=== PATIENT | female | born 1990 | race Two or more races ===

== ENCOUNTER 2025-06-08 05:06 | Inpatient (IN) | payer OTHER ==
[~2025-06-08] VITALS: Ht 157.5 cm; Wt 1.8 kg
[2025-06-08 04:40] VITALS: BP 103/70
[2025-06-08] MEDS ORDERED: MAGNESIUM SULFATE IN WATER 500 ML IV SCH (05:15)
[2025-06-08] MEDS ORDERED: RINGERS SOLUTION,LACTATED 1,000 ML IV SCH (05:15)
[2025-06-08] MEDS ORDERED: MAGNESIUM SULFATE IN WATER 4 GM/100 ML PIGGYBACK IV ONE (05:15)
[2025-06-08] MEDS ORDERED: BETAMETHASONE ACETATE,SOD PHOS 30 MG/5 ML ML IM ONE ×2 (05:15)
[2025-06-08 06:12] VITALS: BP 96/60; O2SAT 97
[2025-06-08 07:06] LABS: BASO % 0.2 % (0.1-1.2); EOS # 0.12 (0.04-0.54); EOS % 1.3 % (0.7-7.0); LYMPH # 1.34 (1.18-3.74); LYMPH % 14.9 % (19.3-53.1); MEAN PLATELET VOLUME 8.40 fl (9.4-12.4); MONO # 0.60 (0.24-0.82); MONO % 6.7 % (4.7-12.5); NEUT # 6.87 (1.56-6.13); NEUT % 76.2 % (34.0-71.1); RED CELL DISTRIBUTION WIDTH 12.3 % (11.6-14.4)
[2025-06-08] MEDS ORDERED: PRENATAL TABLE1 EAC1 PO (07:13)
[2025-06-08] MEDS ORDERED: NIFEDIPINE20 MG PO (07:14)
[2025-06-08 07:24] LABS: INR < 0.93
[2025-06-08 07:32] LABS: ALT/SGPT 81.0 U/L (12-78); AST/SGOT 35.0 U/L (15-37); BILIRUBIN TOTAL 0.32 mg/dL (0.3-1.2); BUN CREA RATIO 15.0 (7.0-25.0); CREATININE SERUM 0.46 mg/dL (0.55-1.02); GFR 155.5; GLOBULINA 3.0 G/DL (2.4-3.5); GLUCOSE FASTING 98.0 mg/dL (65-100); OSMOLALITY SERUM 275.0 MOSM/KG (275-295)
[2025-06-08] MEDS ORDERED: ACETAMINOPHEN 500 MG GEL..CAP PO PRN (08:00)
[2025-06-08] MEDS ORDERED: FAMOTIDINE/PF 20 MG/2 ML VIAL IV PUSH PRN (08:00)
[2025-06-08] MEDS ORDERED: SOD FERRIC GLUC COMPLX/SUCROSE 62.5 MG/5 ML AMPUL IV SCH (09:00)
[2025-06-08] MEDS ORDERED: IRON/V.C/V.B12/FOLIC A/VIT. E 1 CAPL CAPLET PO SCH (09:00)
[2025-06-08 16:00] VITALS: BP 105/68
[2025-06-08] MEDS ORDERED: POLYETHYLENE GLYCOL 3350 17 GM BLIST.PACK PO SCH (21:00)
[2025-06-08 22:16] VITALS: BP 108/71
[2025-06-09 01:27] VITALS: BP 109/63
[2025-06-09] MEDS ORDERED: BETAMETHASONE ACETATE,SOD PHOS 30 MG/5 ML ML IM ONE (06:00)
[2025-06-09] MEDS ORDERED: BETAMETHASONE ACETATE,SOD PHOS 30 MG/5 ML ML ONE (06:37)
[2025-06-09 08:00] VITALS: BP 99/65
[2025-06-09 08:05] LABS: BASO % 0.1 % (0.1-1.2); EOS # 0.01 (0.04-0.54); EOS % 0.1 % (0.7-7.0); LYMPH # 1.43 (1.18-3.74); LYMPH % 13.3 % (19.3-53.1); MEAN PLATELET VOLUME 8.30 fl (9.4-12.4); MONO # 0.76 (0.24-0.82); MONO % 7.1 % (4.7-12.5); NEUT # 8.34 (1.56-6.13); NEUT % 77.8 % (34.0-71.1); RED CELL DISTRIBUTION WIDTH 13.0 % (11.6-14.4)
[2025-06-09] MEDS ORDERED: NIFEDIPINE 30 MG TAB.SA.OSM PO SCH (09:00)
[2025-06-09] MEDS ORDERED: PNV,CALCIUM 72/IRON/FOLIC ACID 1 TAB TABLET PO SCH (12:00)
[2025-06-09 15:11] VITALS: BP 105/64
[2025-06-09] MEDS ORDERED: MAGNESIUM SULFATE IN WATER 0.04 GM/ML IV.SOLN IV ONE (15:12)
[2025-06-09] MEDS ORDERED: MAGNESIUM SULFATE IN WATER 500 ML IV SCH (15:45)
[2025-06-09 16:42] VITALS: BP 100/55
[2025-06-09 20:15] VITALS: BP 103/62; O2SAT 96
[2025-06-09] MEDS ORDERED: IRON FUM,PS/FOLIC/BCOMP,C NO.9 1 CAP CAPSULE PO SCH (21:00)
[2025-06-09 23:08] VITALS: BP 99/60
[2025-06-10 03:00] VITALS: BP 98/62; O2SAT 97
[2025-06-10 06:27] VITALS: BP 101/66; O2SAT 97
[2025-06-10 09:00] VITALS: BP 99/69
[2025-06-10 09:24] LABS: BASO % 0.1 % (0.1-1.2); EOS # 0.02 (0.04-0.54); EOS % 0.2 % (0.7-7.0); LYMPH # 1.36 (1.18-3.74); LYMPH % 11.4 % (19.3-53.1); MEAN PLATELET VOLUME 8.40 fl (9.4-12.4); MONO # 0.73 (0.24-0.82); MONO % 6.1 % (4.7-12.5); NEUT # 9.50 (1.56-6.13); NEUT % 79.8 % (34.0-71.1); RED CELL DISTRIBUTION WIDTH 13.5 % (11.6-14.4)
[2025-06-10 17:06] VITALS: BP 101/63
[2025-06-10 19:10] VITALS: BP 100/66
[2025-06-10 23:14] VITALS: BP 105/67
[2025-06-11 04:03] VITALS: BP 98/61
[2025-06-11 07:09] VITALS: BP 100/65
[2025-06-11 13:12] VITALS: BP 110/74
[2025-06-11 16:47] VITALS: BP 105/69
[2025-06-11 19:42] LABS: BASO % 0.3 % (0.1-1.2); EOS # 0.18 (0.04-0.54); EOS % 1.5 % (0.7-7.0); LYMPH # 1.62 (1.18-3.74); LYMPH % 13.6 % (19.3-53.1); MEAN PLATELET VOLUME 8.40 fl (9.4-12.4); MONO # 1.08 (0.24-0.82); MONO % 9.0 % (4.7-12.5); NEUT # 8.68 (1.56-6.13); NEUT % 72.7 % (34.0-71.1); RED CELL DISTRIBUTION WIDTH 13.6 % (11.6-14.4)
[2025-06-12 00:47] VITALS: BP 104/67
[2025-06-12 09:53] VITALS: BP 101/65
[2025-06-12 16:00] VITALS: BP 103/70
[2025-06-13] VITALS: BP 96/61
[2025-06-13] MEDS ORDERED: POLYETHYLENE GLYCOL 3350 17 GM BLIST.PACK PO SCH (07:09)
[2025-06-13 09:50] VITALS: BP 98/64
[2025-06-13 16:07] VITALS: BP 101/67
[2025-06-14 01:12] VITALS: BP 99/61
[2025-06-14 07:16] LABS: BASO % 0.4 % (0.1-1.2); EOS # 0.40 (0.04-0.54); EOS % 3.2 % (0.7-7.0); LYMPH # 1.68 (1.18-3.74); LYMPH % 13.3 % (19.3-53.1); MEAN PLATELET VOLUME 8.30 fl (9.4-12.4); MONO # 1.17 (0.24-0.82); MONO % 9.3 % (4.7-12.5); NEUT # 8.98 (1.56-6.13); NEUT % 71.3 % (34.0-71.1); RED CELL DISTRIBUTION WIDTH 13.2 % (11.6-14.4)
[2025-06-14 07:22] VITALS: BP 103/64
[2025-06-14] MEDS ORDERED: OXYTOCIN 1,000 ML IV ONE (12:00)
[2025-06-14] MEDS ORDERED: MORPHINE SULFATE 4 MG/ML CARTRIDGE IV PRN (12:00)
[2025-06-14] MEDS ORDERED: ACETAMINOPHEN 500 MG GEL..CAP PO SCH (12:00)
[2025-06-14] MEDS ORDERED: RINGERS SOLUTION,LACTATED 1,000 ML IV SCH (12:00)
[2025-06-14] MEDS ORDERED: ONDANSETRON HCL 2 MG/ML VIAL IV SCH (12:00)
[2025-06-14] MEDS ORDERED: KETOROLAC TROMETHAMINE 30 MG VIAL IV SCH (12:00)
[2025-06-14] MEDS ORDERED: OXYTOCIN 20 UNITS/1000ML RL PIGGYBAG IV ONE (13:15)
[2025-06-14] MEDS ORDERED: SUGAMMADEX SODIUM 200 MG/2 ML VIAL IV ONE (13:15)
[2025-06-14] MEDS ORDERED: ERYTHROMYCIN BASE OPHT 1GM EACH TUBE OP ONE (13:15)
[2025-06-14 13:57] VITALS: BP 113/75
[2025-06-14 16:03] VITALS: BP 97/65
[2025-06-14] MEDS ORDERED: GABAPENTIN 300 MG CAPSULE PO SCH (17:00)
[2025-06-14] MEDS ORDERED: SIMETHICONE 125 MG CAPSULE PO SCH (17:00)
[2025-06-14 19:19] LABS: BASO % 0.4 % (0.1-1.2); EOS # 0.13 (0.04-0.54); EOS % 0.7 % (0.7-7.0); LYMPH # 1.98 (1.18-3.74); LYMPH % 9.9 % (19.3-53.1); MEAN PLATELET VOLUME 8.60 fl (9.4-12.4); MONO # 1.23 (0.24-0.82); MONO % 6.2 % (4.7-12.5); NEUT # 16.22 (1.56-6.13); NEUT % 81.3 % (34.0-71.1); RED CELL DISTRIBUTION WIDTH 13.3 % (11.6-14.4)
[2025-06-14] MEDS ORDERED: KETOROLAC TROMETHAMINE 10 MG TABLET PO SCH (21:30)
[2025-06-14] MEDS ORDERED: OxyCODONE HCL 5 MG TABLET (ROXICODONE) PO PRN (21:30)
[2025-06-15 00:50] VITALS: BP 99/65
[2025-06-15 06:11] LABS: BASO % 0.3 % (0.1-1.2); EOS # 0.15 (0.04-0.54); EOS % 1.0 % (0.7-7.0); LYMPH # 1.81 (1.18-3.74); LYMPH % 12.2 % (19.3-53.1); MEAN PLATELET VOLUME 8.70 fl (9.4-12.4); MONO # 1.13 (0.24-0.82); MONO % 7.6 % (4.7-12.5); NEUT # 11.53 (1.56-6.13); NEUT % 77.6 % (34.0-71.1); RED CELL DISTRIBUTION WIDTH 13.2 % (11.6-14.4)
[2025-06-15] MEDS ORDERED: OxyCODONE HCL 5 MG TABLET (ROXICODONE) PO PRN (08:00)
[2025-06-15] MEDS ORDERED: KETOROLAC TROMETHAMINE 10 MG TABLET PO SCH (08:00)
[2025-06-15 08:08] VITALS: BP 101/66
[2025-06-15 09:00] LABS: ALT/SGPT 127.0 U/L (12-78); AST/SGOT 67.0 U/L (15-37); BILIRUBIN TOTAL 0.45 mg/dL (0.3-1.2); BUN CREA RATIO 18.0 (7.0-25.0); CREATININE SERUM 0.44 mg/dL (0.55-1.02); GFR 163.68; GLOBULINA 2.7 G/DL (2.4-3.5); GLUCOSE FASTING 80.0 mg/dL (65-100); OSMOLALITY SERUM 277.0 MOSM/KG (275-295)
[2025-06-15] MEDS ORDERED: DOCUSATE SODIUM 100MG CAP PO SCH (09:00)
[2025-06-15 15:08] VITALS: BP 103/66
[2025-06-16 00:35] VITALS: BP 104/65
[2025-06-16 05:46] VITALS: BP 100/61
[2025-06-16 08:03] VITALS: BP 103/72
[2025-06-16 16:22] VITALS: BP 90/60
[2025-06-17] VITALS: BP 108/74
[2025-06-17 08:00] VITALS: BP 109/74
== END 2025-06-17 16:47 | DRG 788 ==
LOC: LDR 05:06 → OB/GYN 05:06
PROVIDERS: Obstetrics & Gynecology; ADMIT Obstetrics & Gynecology; ATTEND Obstetrics & Gynecology
PROC: 30233N1 Transfusion of Nonautologous Red Blood Cells into Peripheral Vein, Percutaneous Approach (ICD-10-PCS; 2025-06-08)
PROC: BY4FZZZ Ultrasonography of Third Trimester, Single Fetus (ICD-10-PCS; 2025-06-08)
PROC: BY47ZZZ Ultrasonography of Fetal Umbilical Cord (ICD-10-PCS; 2025-06-08)
PROC: BU4CZZZ Ultrasonography of Uterus and Ovaries (ICD-10-PCS; 2025-06-08)
PROC: 4A1HXCZ Monitoring of Products of Conception, Cardiac Rate, External Approach (ICD-10-PCS; 2025-06-08)
PROC: 10D00Z1 Extraction of Products of Conception, Low, Open Approach (ICD-10-PCS; principal; 2025-06-14 10:00)
DX: O44.13 Complete placenta previa with hemorrhage, third trimester (principal); O26.853 Spotting complicating pregnancy, third trimester; O36.8130 Decreased fetal movements, third trimester, not applicable or unspecified; O36.5930 Maternal care for other known or suspected poor fetal growth, third trimester, not applicable or unspecified; O26.843 Uterine size-date discrepancy, third trimester; O99.013 Anemia complicating pregnancy, third trimester; D64.9 Anemia, unspecified; Z3A.31 31 weeks gestation of pregnancy; Z37.0 Single live birth